=== PATIENT | female | born 1980 | race Native Hawaiian/Other Pacific Islander ===

== ENCOUNTER 2017-08-31 15:30 | Outpatient (CLI) | payer OTHER ==
[2017-08-31] MEDS ORDERED: TYLENOL PO ONE (16:00)
[2017-08-31] MEDS ORDERED: NORMOSOL-R PH 7.4 1,000 ML IV ONE ×2 (16:04)
[2017-08-31] MEDS ORDERED: NORMOSOL-R PH 7.4 1,000 ML IV SCH (16:35)
[2017-08-31] MEDS ORDERED: LACTATED RINGERS 1,000 ML IV SCH (17:00)
[2017-08-31 17:08] LABS: Hematocrit 39.6 % (30.3-42.9); Hemoglobin 13.2 gm/dl (10.1-14.3); Mean Corpuscular HGB Conc 33 % (30-34); Mean Corpuscular Hemoglobin 30 pg (28-32); Mean Corpuscular Volume 90 fl (79-97); Platelet Count 170 K/mm3 (140-440); Red Blood Count 4.41 M/mm3 (3.65-5.03); Red Cell Distribution Width 13.8 % (13.2-15.2)
[2017-08-31 17:11] VITALS: BP 93/50
--- NOTE | 2017-08-31 18:07 | Ultrasound Report ---
FINAL REPORT EXAM: US OB BPP WO NON-STRESS HISTORY: bpp TECHNIQUE: Ultrasound examination of the gravid uterus for biophysical profile evaluation of the fetus PRIORS: Limited Ob ultrasound 08/31/2017 FINDINGS: There is a single viable intrauterine with documented cardiac activity. The amniotic fluid volume is normal. heart rate: 152 bpm Amniotic fluid index: 13.3 cm position: Cephalic Placental position: Anterior Evaluation for biophysical profile yields the following score as reported by technologist from real-time exam: respiratory motion (minimum one episode): 2 Gross body movement (minimum 3 movements): 2 tone (minimum one flexion and extension): 2 Amniotic fluid volume (at least 2 cm pocket in vertical diameter): 2 IMPRESSION: Single viable intrauterine with 8/8 biophysical profile score during the sonographic evaluation
--- NOTE | 2017-08-31 18:10 | Ultrasound Report ---
FINAL REPORT EXAM: US OB LIMITED HISTORY: julio TECHNIQUE: Ultrasound evaluation of the gravid uterus PRIORS: Biophysical profile 08/31/2017 FINDINGS: There is a single viable intrauterine with documented cardiac activity. There is no evidence of placenta previa or abruption in the limited visualized portion. The maternal cervix is obscured by head. The quantity of visualized amniotic fluid appears grossly normal. No sonographic abnormality in the limited visualized portion of the anatomy. Heart rate: 149 beats per minute position: Cephalic Placental position: Anterior Amniotic fluid index: 13.3cm IMPRESSION: Single viable intrauterine with the above parameters
[2017-08-31 18:17] LABS: Band Neutrophils # (Manual) 0.9 K/mm3; Basophils % (Manual) 0 % (0.0-1.8); Burr Cells Few; Eosinophils % (Manual) 0 % (0.0-4.3); Total Cells Counted 100
== END 2017-08-31 17:50 | disposition home or self-care (01) ==
LOC: TRG 15:30
PROVIDERS: ATTEND Obstetrics & Gynecology
DX: O47.1 False labor at or after 37 completed weeks of gestation (principal); Z3A.38 38 weeks gestation of pregnancy
CPT/HCPCS: 36415; 76815; 76819; 85007; 85025; 96360